=== PATIENT | female | born 1990 | race Caucasian/White ===

== ENCOUNTER 2018-01-18 06:58 | Emergency (ER) | END 2018-01-18 07:28 | disposition home or self-care (01) ==

== ENCOUNTER 2018-04-19 08:31 | Emergency (ER) | END 2018-04-19 10:51 | disposition home or self-care (01) ==

== ENCOUNTER 2019-01-22 15:00 | Emergency (ER) | payer SELFPAY ==
[~2019-01-22] VITALS: Ht 167.6 cm; Wt 51.3 kg
[~2019-01-22 15:00] MED LIST: AMOX1TAB10 PO; ARIP5TAB14 PO; CITA10TA10; FIORICET PO; HYDR-4011 PO; LAMO25TA8 PO; LORA-441 PO; NAPR-985 PO; ONDA4TAB8 PO; OXYC-279 PO
[2019-01-22 15:28] VITALS: BP 107/60; PULSE 75; RESP 18; Ht 167.6 cm; Wt 51.3 kg
[2019-01-22] MEDS ORDERED: IBUPROFEN 200 MG TAB PO ONE (16:30)
--- NOTE | 2019-01-22 17:19 | ERD ---
ER Documentation Chief Complaint Chief Complaint sudden pain fr knee to foot, denies any injury HPI 28-year-old female presents with complaint of calf and popliteal pain in the the right leg for the past 5 days. Patient denies any injury. Denies any treatments. Denies any edema, erythema, numbness, tingling, impaired range of motion, weakness, history of clotting disorders, chest pain, cough. ROS All systems reviewed and are negative except as per history of present illness. Medications Home Meds Active Scripts Ibuprofen* (Motrin*) 600 Mg Tab, 600 MG PO Q6H PRN for PAIN AND OR ELEVATED TEMP, #30 TAB Prov:THEO DU 01/22/19 Ondansetron Hcl* (Zofran*) 4 Mg Tablet, 4 MG PO Q6H for NAUSEA AND/OR VOMITING, #30 TAB Prov:ARNAUD WILLIAMSON PA-C 04/19/18 Naproxen* (Naprosyn*) 500 Mg Tablet, 500 MG PO BID PRN for PAIN AND/OR INFLAMMATION, #30 TAB Prov:ARNAUD WILLIAMSON PA-C 04/19/18 Acetamin/Butalbital/Caffeine* (Fioricet*) [id number] Tab, 1 TAB PO Q6H PRN for PAIN, #30 TAB Prov:ARNAUD WILLIAMSON PA-C 04/19/18 Naproxen* (Naprosyn*) 500 Mg Tablet, 500 MG PO BID PRN for PAIN AND/OR INFLAMMATION, #30 TAB Prov:COLE SERRA PA-C 01/18/18 Oxycodone HCl/Acetaminophen (Percocet 5-325 mg Tablet) 1 Each Tablet, 1 EACH PO BID, #10 TAB Prov:COLE SERRA PA-C 01/18/18 Amoxicillin/Potassium Clav (Amox-Clav 875-125 mg Tablet) 875-125 mg Tab, 1 TAB PO BID for 7 Days, #14 TAB Prov:COLE SERRA PA-C 01/18/18 Naproxen* (Naprosyn*) 500 Mg Tablet, 500 MG PO BID PRN for PAIN AND/OR INFLAMMATION, #30 TAB Prov:YASMANY PEREZ PA-C 09/15/16 Hydrocodone/Acetaminophen ([place] 5-325 Tablet) 1 Each Tablet, 1-2 TAB PO Q6H PRN for PAIN, #30 TAB Prov:YASMANY PEREZ PA-C 09/15/16 Lorazepam* (Ativan*) 0.5 Mg Tablet, 0.5 MG PO Q4 PRN for ANXIETY, #10 TAB Prov:PATI TORRES MD 10/11/15 Lamotrigine* (Lamotrigine*) 25 Mg Tablet, 25 MG PO DAILY for 7 Days, TAB Prov:PATI TORRES MD 10/11/15 Aripiprazole* (Abilify*) 5 Mg Tab, 5 MG PO BID for 7 Days, TAB Prov:PATI TORRES MD 10/11/15 Reported Medications Citalopram Hydrobromide* (Celexa*) 10 Mg Tablet 12/31/10 Allergies Allergies: Coded Allergies: No Known Allergies (Verified Allergy, Mild, 04/19/18) PMhx/Soc History of Surgery: Yes (head sx as baby) Anesthesia Reaction: No Hx Neurological Disorder: No Hx Respiratory Disorders: No Hx Cardiac Disorders: No Hx Psychiatric Problems: Yes (depression, anxiety , bipolar disorder) Hx Miscellaneous Medical Probl: No Hx Alcohol Use: No Hx Substance Use: No Hx Tobacco Use: Yes (cigaret) Smoking Status: Current some day smoker FmHx Family History: No diabetes, No coronary disease, No other Physical Exam Vitals Vital Signs Date Temp Pulse Resp B/P (MAP) Pulse Ox O2 O2 Flow FiO2 Time Delivery Rate 01/22/19 98.5 75 18 107/60 100 15:28 (76) Physical Exam Const: No acute distress Head: Atraumatic Eyes: Normal Conjunctiva ENT: Normal External Ears, Nose and Mouth. Neck: Full range of motion. No meningismus. Resp: Clear to auscultation bilaterally Cardio: Regular rate and rhythm, no murmurs Abd: Soft, non tender, non distended. Normal bowel sounds Skin: No petechiae or rashes Back: No midline or flank tenderness Ext: No cyanosis, or edema. Mild tenderness to palpation in the popliteal fossa of right leg. There is no edema, erythema, ecchymosis, or sylvie deformity noted. Overlying skin is intact. Compartments are soft and warm. There is no pallor or cyanosis. Range of motion, distal pulses, and distal sensation is intact. There is normal cap refill. Neur: Awake and alert Psych: Normal Mood and Affect Results 24 hrs Laboratory Tests Test 01/22/19 16:47 POC Beta HCG, Qualitative NEGATIVE Current Medications Medications Dose Sig/Carlos Start Time Status Last (Trade) Ordered Route PRN Stop Time Admin Dose Reason Admin Ibuprofen 400 mg ONCE ONCE 01/22/19 DC 01/22/19 (Motrin) PO 16:30 16:56 01/22/19 16:31 Procedures/MDM DIAGNOSTIC IMAGING REPORT Patient: SIVA DURANT : 1990 Age: 28 Sex: F MR #: [id number] DOS: 01/22/19 1622 Ordering MD: THEO DU Location: [facility] Room/Bed: PROCEDURE: US Lower extremity Venous. CLINICAL INDICATION: Right leg edema, pain TECHNIQUE: Multiple sonographic images of the right lower extremity deep venous system was obtained utilizing grayscale, color-flow, compressive sonography and doppler imaging with augmentation. The images were reviewed on a PACS workstation. COMPARISON: None. FINDINGS: There is normal compressibility and flow within the right common femoral, femoral, posterior tibial, peroneal and popliteal veins. RPTAT: AA IMPRESSION: No sonographic evidence for deep venous thrombosis. .Eric Ortega MD, Date Time Electronically viewed and signed by .Eric Ortega MD, on 01/22/2019 16:44 .S/ CC: THEO DU [id number] MDM: Ultrasound was performed to rule out blood clot results within normal limits. Permission most likely experiencing transient tendinitis and will be treated with ibuprofen. I have low suspicion for neurovascular compromise, compartment syndrome, fracture, osteomyelitis, septic joint, or other emergent condition. Patient discharged with strict ER precautions. Patient advised to follow up with PMD. All questions answered at discharge. Departure Diagnosis: Primary Impression: Tendonitis Condition: Stable THEO DU Jan 22, 2019 17:19
[2019-01-22] MEDS ORDERED: IBUP-1542 PO (17:22)
== END 2019-01-22 17:46 | disposition home or self-care (01) ==
LOC: FTE 15:00
DX: M77.9 Enthesopathy, unspecified (principal); F17.210 Nicotine dependence, cigarettes, uncomplicated
CPT/HCPCS: 81025; 93971